=== PATIENT | male | born 1940 | race Caucasian/White ===

== ENCOUNTER 2017-05-11 11:00 | Emergency (ER) | payer OTHER ==
[~2017-05-11] VITALS: Ht 172.7 cm; Wt 81.6 kg
[~2017-05-11 11:00] MED LIST: ACTOS30 MG PO; CARDIZEM CD240 MG PO; DICLOFENAC SODI50 MG PO; SEPTRA DS TABLE1 TAB PO
[2017-05-11] MEDS ORDERED: METFORMIN HCL500 MG (11:45)
[2017-05-11] MEDS ORDERED: FENOFIBRATE200 MG (11:45)
[2017-05-11] MEDS ORDERED: FORTAMET1000 MG (11:45)
[2017-05-11] MEDS ORDERED: ZYLOPRIM100 M1 (11:45)
== END 2017-05-11 13:15 | disposition home or self-care (01) ==
LOC: ER 11:00
DX: M54.5 Low back pain (principal)

== ENCOUNTER 2018-08-27 10:03 | Outpatient (CLI) | payer OTHER ==
[~2018-08-27 10:03] MED LIST changes: +FENOFIBRATE200 MG; +FORTAMET1000 MG; +METFORMIN HCL500 MG; +ZYLOPRIM100 M1
== END 2018-08-27 10:14 | disposition home or self-care (01) ==
LOC: NUCLEAR 10:03
DX: I20.9 Angina pectoris, unspecified (principal)